=== PATIENT | female | born 1965 | race Hispanic/Latino ===

== ENCOUNTER 2023-05-16 18:56 | Emergency (ER) | payer SELFPAY ==
--- NOTE | ~2023-05-16 | XR_ITS ---
Portable chest x-ray Comparison: None Clinical History: Weakness Findings: Lungs are clear, without focal consolidation or pleural effusion. Cardiomediastinal silho uette is stable. Bones and soft tissues are unremarkable. Impression: Clear lungs. Reviewed, dictated and finalized at location M. Impression: Clear lungs.
--- NOTE | ~2023-05-16 | CT_ITS ---
Non-contrast Head CT History: Dizziness Technique: Axial non-contrast imaging of the brain was performed. Dose reduction technique was used on this scan by utilizing automated exposure control and iterative reconstruction technique. The dose -length product (DLP) was 605.33 mGy-cm. Findings: There is no evidence of intracranial hemorrhage, mass lesion, or acute infarct. Brain par enchyma appears normal. The ventricles and subarachnoid spaces are normal in size. The calvarium ap pears normal. The visualized paranasal sinuses and mastoid air cells are clear. Impression: No significant abnormality seen. Reviewed, dictated and finalized at location . Impression: No significant abnormality seen.
[2023-05-16 19:28] VITALS: BP 134/95; PULSE 71; RESP 16; TEMP 36.3; O2SAT 99
--- NOTE | 2023-05-16 19:32 | ECG_ITS ---
Measurements Intervals [place] Rate: 67 P: 40 RI: 180 QRS: -30 QRSD: 85 T: 51 QT: 394 QTc: 418 Interpretive Statements SINUS RHYTHM BORDERLINE LEFT AXIS DEVIATION [QRS AXIS < -20] BORDERLINE ECG NO PREVIOUS ECG AVAILABLE FOR COMPARISON Electronically Signed On 05-17-2023 7:26:42 CDT by Porter Samano M.D.
--- NOTE | 2023-05-16 23:31 | PC.NURSE ---
no answer at triage for vs
[2023-05-17] MEDS: ONDANSETRON INJ 4 MG/2 ML VIAL IV PUSH (02:44)
[2023-05-17] MEDS: SODIUM CHLORIDE 0.9% IV 1,000 ML 999 ML IV CONT (02:44)
[2023-05-17] MEDS: MECLIZINE HCL 25 MG TABLET PO (02:44)
[2023-05-17 02:55] VITALS: PULSE 65; RESP 16; O2SAT 99
[2023-05-17 02:56] VITALS: PULSE 62
[2023-05-17 02:56] LABS: Basophils Percent Auto 0.3 % (0.2-1.2); Eosinophils Absolute Auto 0.2 K/mm3 (0-0.3); Eosinophils Percent Auto 2.8 % (0-4.4); Hematocrit 42.3 % (37.0-47.0); Hemoglobin 13.9 g/dL (12.0-15.0); Immature Granulocyte Absolute 0.02 K/mm3 (0.00-0.031); Immature Granulocyte Percent A 0.2 % (0-0.5); Lymphocytes Absolute Auto 4.13 K/mm3 (0.9-3.2); Lymphocytes Percent Auto 48.1 % (18.3-44.2); Mean Corpuscular HGB Conc 32.9 g/dl (32-36); Mean Corpuscular Hemoglobin 30.3 pg (26-34); Mean Corpuscular Volume 92.4 fl (80-100); Mean Platelet Volume 10.8 fl (7.4-10.4); Monocytes Absolute Auto 0.5 K/mm3 (0.1-0.6); Monocytes Percent Auto 5.4 % (2.6-8.5); Neutrophils Absolute Auto 3.7 K/mm3 (1.3-6.7); Neutrophils Percent Auto 43.2 % (45.5-73.1); Platelet Count Result 248 k/mm3 (150-375); Red Blood Count 4.58 M/mm3 (4.2-5.4); Red Cell Distribution Width 12.9 % (11.5-14.5); White Blood Count 8.6 K/mm3 (4.5-10.0)
[2023-05-17 03:10] LABS: Alanine Aminotransferase 22 U/L (6-35); Albumin Level 4.6 g/dL (3.5-5.1); Alkaline Phosphatase 74 U/L (38-126); Anion Gap 6 mmol/L (8-16); Aspartate Amino Transferase 27 U/L (14-36); Bilirubin,Total 0.5 mg/dL (0.2-1.3); Blood Urea Nitrogen 11 mg/dL (7-17); Calcium 9.7 mg/dL (8.4-10.2); Carbon Dioxide 29 mmol/L (22-30); Chloride 106 mmol/L (98-107); Estimated Glomerular Filt Rate > 60; Glucose 93 mg/dL (65-110); Sodium 141 mmol/L (137-145)
--- NOTE | 2023-05-17 03:35 | ED.GENADULT ---
HPI - General Adult General Chief complaint: Dizziness Stated complaint: DIZZINESS X 10 DAYS Time Seen by Provider: 05/17/23 01:58 History of Present Illness HPI narrative: Patient 57-year-old female who presents the emergency department with chief complaint of dizziness. Patient reports that for the last 10 days she has had a feeling of rotational vertigo. Patient states that it feels as though the room is spinning patient states that the symptoms are not improved by anything. The patient reports that the symptoms of continue on long enough that she decided to come to the emergency department for evaluation. Related Data Allergies Allergy/AdvReac Type Severity Reaction Status Date / Time No Known Allergies Allergy Verified 05/17/23 02:35 Review of Systems Review of Systems: A 10 system review of systems was completed on the patient and is negative except for what is stated in the HPI. Nursing and ancillary documentation was reviewed. Exam Narrative: GENERAL: Well-appearing, well-nourished, and in no acute distress. HEAD: Normocephalic, atraumatic. EYES: PERRLA and EOMI. ENT: Nares clear, no rhinorrhea or epistaxis. Mucous membranes moist. NECK: Supple. CHEST: Clear to auscultation. No respiratory distress. HEART: Regular rate and rhythm. No murmur heard. Normal peripheral pulses. ABDOMEN: Soft, nontender, nondistended, normal active bowel sounds. EXTREMITIES: Normal range of motion. No edema. SKIN: Warm, dry, no rash. NEURO: No focal deficits. Alert and oriented x3. PSYCH: Normal mood and affect. Course Vital Signs Vital signs: Vital Signs Temperature 36.3 C L 05/16/23 19:28 Pulse Rate 71 05/16/23 19:28 Respiratory Rate 16 05/16/23 19:28 Blood Pressure 134/95 H 05/16/23 19:28 Pulse Oximetry 99 05/16/23 19:28 Temperature 36.3 C L 05/16/23 19:28 Pulse Rate 60 05/17/23 03:45 Respiratory Rate 16 05/17/23 03:45 Blood Pressure 117/62 05/17/23 03:45 Pulse Oximetry 100 05/17/23 03:45 Medical Decision Making [facility] Narrative Medical decision making narrative: Differential diagnosis includes CVA, vertigo, hepatitis, CT head showed no acute abnormalities Patient feeling better after receiving Antivert in the emergency department Laboratory studies were obtained showed normal CBC and normal CMP. EKG showed no acute abnormality Chest x-ray showed no focal infiltrate. Vital Signs Vital Signs: Vital Signs Temperature 36.3 C L 05/16/23 19:28 Pulse Rate 71 05/16/23 19:28 Respiratory Rate 16 05/16/23 19:28 Blood Pressure 134/95 H 05/16/23 19:28 Pulse Oximetry 99 05/16/23 19:28 Temperature 36.3 C L 05/16/23 19:28 Pulse Rate 60 05/17/23 03:45 Respiratory Rate 16 05/17/23 03:45 Blood Pressure 117/62 05/17/23 03:45 Pulse Oximetry 100 05/17/23 03:45 Lab Data 05/17/23 02:48 05/17/23 02:48 Labs: Lab Results 05/17/23 05/17/23 Range/Units 02:48 03:43 WBC 8.6 (4.5-10.0) K/mm3 RBC 4.58 (4.2-5.4) M/mm3 Hgb 13.9 (12.0-15.0) g/dL Hct 42.3 (37.0-47.0) % MCV 92.4 (80-100) fl MCH 30.3 (26-34) pg MCHC 32.9 (32-36) g/dl RDW 12.9 (11.5-14.5) % Plt Count 248 (150-375) k/mm3 MPV 10.8 H (7.4-10.4) fl Immature Gran % (Auto) 0.2 (0-0.5) % Neut % (Auto) 43.2 L (45.5-73.1) % Lymph % (Auto) 48.1 H (18.3-44.2) % [place] % (Auto) 5.4 (2.6-8.5) % Eos % (Auto) 2.8 (0-4.4) % Baso % (Auto) 0.3 (0.2-1.2) % Lymph # (Auto) 4.13 H (0.9-3.2) K/mm3 [place] # (Auto) 0.5 (0.1-0.6) K/mm3 Eos # (Auto) 0.2 (0-0.3) K/mm3 Baso # (Auto) 0.0 (0.0-0.1) K/mm3 Abs Immat Gran (auto) 0.02 (0.00-0.031) K/mm3 Absolute Neuts (auto) 3.7 (1.3-6.7) K/mm3 Absolute Nucleated RBC 0.0 (0.0-0.012) K/mm3 Nucleated RBC % 0.0 (0.0-0.2) % Sodium 141 (137-145) mmol/L Potassium 4.0 (3.4-5.0) mmol/L Chloride 106 (98-107) mmol/L Carbon Avinash
[2023-05-17 03:45] VITALS: BP 117/62; PULSE 60; RESP 16; O2SAT 100
[2023-05-17 03:55] LABS: Appearance Urine Clear (Clear); Bacteria Urine None Seen /hpf; Bilirubin Urine Negative (Negative); Blood Urine Negative (Negative); Color Urine Yellow (Yellow); Glucose Urine UA Negative (Negative); Ketones Urine Negative (Negative); Leukocyte Esterase Ur Trace LEU/UL (Negative); Nitrate Urine Negative (Negative); Non Pathogenic Casts 0-2; Protein Urine Negative (Negative); RBC Urine 0-2 /hpf (0-2); Specific Grav Ur 1.014 (1.001-1.035); Squamous Epithelial Cell Urine Occasional /hpf (Few); Urobilinogen Urine 0.2 mg/dL (<2.0); WBC Urine 0-5 /hpf
[2023-05-17 04:31] LABS: Add Urine Microscopic? YES
== END 2023-05-17 04:36 | disposition home or self-care (01) ==
PROVIDERS: Emergency Provider Emergency Medicine
DX: H81.10 Benign paroxysmal vertigo, unspecified ear (principal); R94.31 Abnormal electrocardiogram [ECG] [EKG]
CPT/HCPCS: 36415; 70450; 71045; 80053; 81001; 85025; 93005; 96361; 96374; 99284; A9270; J2405; J7030

== ENCOUNTER 2023-05-26 10:51 | Emergency (ER) | payer SELFPAY ==
[2023-05-26] VITALS (18 sets, daily range): BP systolic 104–132; BP diastolic 62–87; PULSE 73–108; RESP 11–20; TEMP 37–37.9; O2SAT 95–100
--- NOTE | ~2023-05-26 | US_ITS ---
EXAMINATION: US abdomen limited DATE: 05/26/2023 16:16 INDICATION: ruq pain TECHNIQUE: Multiple grayscale and Doppler ultrasound images of limited portions of the abdomen were o btained. COMPARISON: None available. FINDINGS: The visualized portions of the pancreas are normal. The liver is normal with normal echogen icity and echotexture. No surface nodularity. Normal hepatopetal flow in the main portal vein. Normal size gallbladder with no wall thickening or pericholecystic fluid. Nonmobile stones in the gallbladd er neck. Gallbladder sludge also noted. 5 mm mildly echogenic gallbladder wall nodule with vascular f low and no shadowing, likely polyp. The common bile duct measures 3 mm. There was no sonographic Murp hy sign. IMPRESSION: Nonmobile gallstones in the gallbladder neck, without gallbladder wall thickening, pericholecystic fl uid or bile duct dilation. 5 mm gallbladder polyp. No follow-up recommended at this time. Reviewed, dictated and finalized at location K. IMPRESSION: Nonmobile gallstones in the gallbladder neck, without gallbladder wall thickeni ng, pericholecystic fluid or bile duct dilation. 5 mm gallbladder polyp. No follow-up recommended at this time.
--- NOTE | ~2023-05-26 | CT_ITS ---
EXAMINATION: CT BRAIN W/O DATE: 05/26/2023 12:52 INDICATION: Headache. TECHNIQUE: Computed tomography (CT) of the head was performed without intravenous contrast. The dose- length product was 605.33 mGy-cm. Automated exposure control and iterative reconstruction technique w ere employed. COMPARISON: CT dated 05/17/2023 FINDINGS: Normal brain parenchymal volume for age. Normal pineda-white differentiation. No acute intrac ranial hemorrhage, infarction, mass or mass effect. No ventriculomegaly or midline shift. Midline sagittal images demonstrate a normal corpus callosum, c raniovertebral junction and sella turcica. Basilar cisterns are patent. Minimal mucosal thickening ethmoid air cells. Mastoids are pneumatized.. No depressed skull fractures . IMPRESSION: 1. No acute intracranial abnormality. Reviewed, dictated and finalized at location A.
--- NOTE | ~2023-05-26 | CT_ITS ---
EXAMINATION: CTA chest PE protocol DATE: 05/26/2023 13:02 CDT INDICATION: Shortness of breath TECHNIQUE: Computed tomographic angiography (CTA) of the chest was performed with 100 mL Omnipaque-35 0 intravenous contrast. The dose-length product was 580.96 mGy-cm. Maximum intensity projection 3D-re constructions of the aorta and other arteries were constructed by the technologist on a separate work station. COMPARISON: None. FINDINGS: No significant pleural or pericardial effusion. Heart size normal. Study is technically cleopatra quate with limited visualization of the segmental pulmonary arteries due to motion and contrast bolus timing. No large central pulmonary embolism. There is a peripherally enhancing 3.2 cm mass in the le ft hepatic lobe in a subcapsular location. There are gallstones. No focal airspace consolidation. No endobronchial lesions. No pneumothorax. IMPRESSION: 1. No acute cardiopulmonary disease. No large central pulmonary embolism. 2: Peripherally enhancing 3.2 cm left hepatic lobe mass, most likely benign hemangioma, although fur ther evaluation with dynamic contrast-enhanced CT or MRI recommended. Reviewed, dictated and finalized at location A. IMPRESSION: 1. No acute cardiopulmonary disease. No large central pulmonary embolism. 2: Peripherally enhancing 3.2 cm left hepatic lobe mass, most likely benign he mangioma, although further evaluation with dynamic contrast-enhanced CT or MRI recommended.
--- NOTE | 2023-05-26 11:40 | ECG_ITS ---
Measurements Intervals [place] Rate: 84 P: 56 SD: 166 QRS: -42 QRSD: 101 T: 49 QT: 371 QTc: 439 Interpretive Statements SINUS RHYTHM POSSIBLE LEFT ATRIAL ENLARGEMENT [-0.1mV P WAVE IN V1/V2] MARKED LEFT AXIS DEVIATION [QRS AXIS < -30] LOW QRS VOLTAGE IN PRECORDIAL LEADS [QRS DEFLECTION < 1.0 mV IN CHEST LEADS] PATTERN CONSISTENT WITH PULMONARY DISEASE ABNORMAL ECG COMPARED TO ECG 05/16/2023 19:39:15 NO SIGNIFICANT CHANGES Electronically Signed On 05-27-2023 6:59:58 CDT by Porter Samano M.D.
--- NOTE | 2023-05-26 11:51 | ED.GENADULT ---
HPI - General Adult General Chief complaint: Fever Stated complaint: FRANCO, dizzy Time Seen by Provider: 05/26/23 11:03 History of Present Illness HPI narrative: Ashlee Dhillon is a 57 y/o [place] speaking female. Through an health program manager pt reports that she has been having this dizziness/ headache that has actually been going on for almost a month, she was here on 05/17 treated, felt better and d/c home. She states that she was sent home with the medication but her symptoms never completely went away, and now she feels like she is having a fever feeling a little short of breath without a cough. Denies chest pain/ no nausea vomiting. SHe states that she feels like her vision has been kind of blurry for about a month. No known PMHx, she does not take any medications daily. Related Data Allergies Allergy/AdvReac Type Severity Reaction Status Date / Time No Known Allergies Allergy Verified 05/26/23 11:19 Review of Systems Review of Systems: CONSTITUTIONAL: reports fever EYES: reports dizziness / blurry vision for about a month maybe ENT: Denies rhinorrhea, congestion, sore throat, or otalgia. CARDIOVASCULAR: Denies chest pain, palpitations, or edema. RESPIRATORY: Denies cough reports of feeling a little short of breath GASTROINTESTINAL: Denies abdominal pain, nausea, vomiting, or diarrhea. GENITOURINARY: Denies dysuria or hematuria. SKIN: Denies rash or itching. MUSCULOSKELETAL: Denies back pain, joint pain, or myalgia. NEUROLOGIC: reports headache, denies numbness, reports of some dizziness PSYCHIATRIC: Denies anxiety or depression. Exam Narrative: GENERAL: Well-appearing, well-nourished, and in no acute distress. HEAD: Normocephalic, atraumatic. EYES: PERRLA and EOMI no nystagmus noted ENT: Nares clear, no rhinorrhea or epistaxis. Mucous membranes moist. Oropharynx without tonsillar hypertrophy exudate or other lesions. NECK: Supple. No adenopathy or masses. No carotid bruits or JVD CHEST: Clear to auscultation. No respiratory distress. No wheezes rales or rhonchi HEART: Regular rate and rhythm. No murmur heard. Normal peripheral pulses. ABDOMEN: Soft, nontender, nondistended, normal active bowel sounds. EXTREMITIES: Normal range of motion. No edema. SKIN: Warm, dry, no rash. NEURO: No focal deficits. Alert and oriented x3. PSYCH: Normal mood and affect. Course Vital Signs Vital signs: Vital Signs Temperature 37.9 C H 05/26/23 11:01 Pulse Rate 108 H 05/26/23 11:01 Respiratory Rate 20 05/26/23 11:01 Blood Pressure 119/77 05/26/23 11:01 Pulse Oximetry 98 05/26/23 11:01 Oxygen Delivery Room Air 05/26/23 11:01 Temperature 37.3 C 05/26/23 15:34 Pulse Rate 88 05/26/23 16:06 Respiratory Rate 18 05/26/23 16:06 Blood Pressure 108/67 05/26/23 16:06 Pulse Oximetry 97 05/26/23 16:06 Oxygen Delivery Room Air 05/26/23 11:11 Medical Decision Making MDM Narrative Medical decision making narrative: On exam pt is calm/ alert and oriented X 4 She reports that she has been dealing with dizziness for about a month she was evaluated here on 05/17 for the same given Meclizine and it helped but seems to have returned with headache She also adds that she has had a fever She reports of feeling maybe short of breath / no cough SHe denies abdominal pain/ nausea/ vomiting Although on exam she does have RUQ pain patient has an elevated WBC Urine is positive for leukocytes. Trop negative Lactate negative CRP 3.3 CMP -negative Covid-negative Flu-negative CT brain - negative CTA chest- negative RUQ US- negative patient treated with IV NS/ Toradol/ Benadryl / Compazine / PO meclizine / PO Tylenol Patient re-evaluated and she states that her headache/ dizziness has improved she states she feels better and would like to go home. She denies any abdominal pain/ she though she had some right upper / right lower chest pain but not at this time. Offered to keep her and continue
[2023-05-26] MEDS: PROCHLORPERAZINE EDISYLATE 10 MG/2 ML VIAL IM (12:01)
[2023-05-26] MEDS: SODIUM CHLORIDE 0.9% IV 1,000 ML 999 ML IV CONT (12:01)
[2023-05-26] MEDS: KETOROLAC 30 MG/ML VIAL (*BKC) IV PUSH (12:02)
[2023-05-26] MEDS: diphenhydrAMINE HCl INJ 50 MG/ML VIAL 25 MG IV PUSH (12:02)
[2023-05-26 12:03] LABS: Basophils Absolute Auto 0.1 K/mm3 (0.0-0.1); Basophils Percent Auto 0.3 % (0.2-1.2); Eosinophils Percent Auto 0.2 % (0-4.4); Hematocrit 41.4 % (37.0-47.0); Hemoglobin 13.7 g/dL (12.0-15.0); Immature Granulocyte Absolute 0.14 K/mm3 (0.00-0.031); Immature Granulocyte Percent A 0.7 % (0-0.5); Lymphocytes Absolute Auto 1.99 K/mm3 (0.9-3.2); Lymphocytes Percent Auto 10.4 % (18.3-44.2); Mean Corpuscular HGB Conc 33.1 g/dl (32-36); Mean Corpuscular Volume 90.8 fl (80-100); Monocytes Absolute Auto 0.7 K/mm3 (0.1-0.6); Monocytes Percent Auto 3.8 % (2.6-8.5); Neutrophils Absolute Auto 16.2 K/mm3 (1.3-6.7); Neutrophils Percent Auto 84.6 % (45.5-73.1); Platelet Count Result 226 k/mm3 (150-375); Red Blood Count 4.56 M/mm3 (4.2-5.4); Red Cell Distribution Width 12.9 % (11.5-14.5); White Blood Count 19.2 K/mm3 (4.5-10.0)
[2023-05-26 12:13] LABS: Appearance Urine Clear (Clear); Bacteria Urine None Seen /hpf; Bilirubin Urine Negative (Negative); Blood Urine Negative (Negative); Color Urine Yellow (Yellow); Glucose Urine UA Negative (Negative); Ketones Urine Negative (Negative); Leukocyte Esterase Ur 1+ LEU/UL (Negative); Need Manual Microscopic Reviewed; Nitrate Urine Negative (Negative); Non Pathogenic Casts 0-2; Protein Urine Negative (Negative); RBC Urine 0-2 /hpf (0-2); Specific Grav Ur 1.012 (1.001-1.035); Squamous Epithelial Cell Urine None seen /hpf (Few); Urobilinogen Urine 0.2 mg/dL (<2.0); WBC Urine 0-5 /hpf; pH Urine >=9.0 (5.0-9.0)
[2023-05-26 12:14] LABS: Add Urine Microscopic? YES
[2023-05-26 12:15] LABS: Lactic Acid Reflex 1.4 mmol/L (0.7-2.0)
[2023-05-26 12:19] LABS: Alanine Aminotransferase 20 U/L (6-35); Albumin Level 4.5 g/dL (3.5-5.1); Alkaline Phosphatase 91 U/L (38-126); Anion Gap 9 mmol/L (8-16); Aspartate Amino Transferase 24 U/L (14-36); Bilirubin,Total 0.7 mg/dL (0.2-1.3); Blood Urea Nitrogen 8 mg/dL (7-17); CRP 3.3 mg/dL (<1.0); Calcium 9.3 mg/dL (8.4-10.2); Carbon Dioxide 24 mmol/L (22-30); Chloride 104 mmol/L (98-107); Estimated CRCL calculation 87 ml/min; Estimated Glomerular Filt Rate > 60; Glucose 107 mg/dL (65-110); Lipase 65 U/L (23-300); Potassium 3.6 mmol/L (3.4-5.0); Sodium 137 mmol/L (137-145)
[2023-05-26 12:27] LABS: Troponin I < 0.012 ng/mL (0.000-0.034)
[2023-05-26 12:39] LABS: Influenza A QL RT-PCR Negative (Negative); Influenza B QL RT-PCR Negative (Negative); RSV RNA, RT-PCR Negative (Negative); SARS-CoV-2 RNA PCR Negative (Negative)
[2023-05-26] MEDS: MECLIZINE HCL 25 MG TABLET PO (14:14)
[2023-05-26] MEDS: ACETAMINOPHEN 500 MG TABLET 1000 MG PO (16:17)
== END 2023-05-26 17:22 | disposition home or self-care (01) ==
PROVIDERS: Emergency Provider Nurse Practitioner Family
DX: R42 Dizziness and giddiness (principal); G43.919 Migraine, unspecified, intractable, without status migrainosus; N30.00 Acute cystitis without hematuria; Z20.822 Contact with and (suspected) exposure to COVID-19; K82.4 Cholesterolosis of gallbladder; R16.0 Hepatomegaly, not elsewhere classified
CPT/HCPCS: 36415; 70450; 71275; 76705; 80053; 81001; 83605; 83690; 84484; 85025; 86140; 87637; 93005; 96361; 96372; 96374; 96375; 99284; A9270; J0780; J1200; J1885; J7030; Q9967